=== PATIENT | male | born 1980 | race Caucasian/White ===

== ENCOUNTER 2018-01-23 15:42 | Emergency (ER) | payer OTHER ==
[~2018-01-23] VITALS: Ht 177.8 cm; Wt 86.2 kg
== END 2018-01-23 18:19 | disposition home or self-care (01) ==
LOC: ER 15:42
DX: S13.4XXA Sprain of ligaments of cervical spine, initial encounter (principal); M62.838 Other muscle spasm; V49.9XXA Car occupant (driver) (passenger) injured in unspecified traffic accident, initial encounter; Y93.89 Activity, other specified; Y92.488 Other paved roadways as the place of occurrence of the external cause; Y99.8 Other external cause status